=== PATIENT | male | born 1955 | race Caucasian/White ===

== ENCOUNTER 2016-11-22 22:55 | Emergency (ER) | payer BC ==
[2016-11-23 00:24] VITALS: BP 153/95
--- NOTE | 2016-11-23 00:39 | ED ---
Skin Complaint - HPI Summary HPI Summary: Patient arrives to ED with a CC of discoloration and swelling over the right 4th finger x1 day. He denies trauma to the area. He admits he has not been to a PCP in over 5 years. He denies pain, SOB, chest discomfort, SCHMIDT, abd pain, visual disturbances or other complaints. Denies anticoagulant use. Denies medications or allergies. - History of Current Complaint Chief Complaint: EDExtremityUpper Time Seen by Provider: 11/23/16 00:00 Stated Complaint: BRUISING ON FINGER Hx Obtained From: Patient Onset/Duration: Started Hours Ago Skin Exposure Onset/Duration: Hours Ago Timing: Constant Onset Severity: Mild Current Severity: Mild Pain Intensity: 0 Pain Scale Used: 0-10 Numeric Skin Location: Discrete - at right 4th finger Character: Swelling - with ecchymosis Aggravating Symptom(s): Nothing Alleviating Symptom(s): Nothing Associated Signs & Symptoms: Negative - Allergy/Home Medications Allergies/Adverse Reactions: Allergies Allergy/AdvReac Type Severity Reaction Status Date / Time No Known Allergies Allergy Verified 10/07/13 14:16 PMH/Surg Hx/FS Hx/Imm Hx Previously Healthy: Yes - Surgical History Surgery Procedure, Year, and Place: Descended testicle. Oral surgery, removing teeth/gum surgery Infectious Disease History: No Infectious Disease History: Denies: Hx Clostridium Difficile, Hx Hepatitis, Hx Human Immunodeficiency Virus (HIV), Hx of Known/Suspected MRSA, Hx Shingles, Hx Tuberculosis, Hx Known/ Suspected VRE, Hx Known/Suspected VRSA, History Other Infectious Disease, Traveled Outside the [place] in Last 30 Days - Social History Occupation: Employed Full-time Lives: With Family Alcohol Use: None Hx Substance Use: No Substance Use Type: Reports: None, Excessive Caffeine Hx Tobacco Use: No Smoking Status (MU): Never Smoked Tobacco Do You Chew or Dip Tobacco: No Have You Chewed or Dipped Tobacco in the LAST YEAR: No Review of Systems Constitutional: Negative Cardiovascular: Negative Respiratory: Negative Positive: Arthralgia - osteoarthritis at baseline Positive: Other - ecchymosis and slight swelling superior to the MCP joint of the right 4th finger Neurological: Negative Psychological: Normal All Other Systems Reviewed And Are Negative: Yes Physical Exam Triage Information Reviewed: Yes Vital Signs On Initial Exam: Initial Vitals Temp Pulse Resp BP Pulse Ox 98.9 F 96 16 166/100 98 11/22/16 23:14 11/22/16 23:14 11/22/16 23:14 11/22/16 23:14 11/22/16 23:14 Vital Signs Reviewed: Yes Appearance: Positive: Well-Appearing, No Pain Distress, Well-Nourished Skin: Positive: Other - ecchymosis and slight swelling superior to the MCP joint of the right 4th finger Head/Face: Positive: Normal Head/Face Inspection Diagnostics - Vital Signs Vital Signs Temp Pulse Resp BP Pulse Ox 11/22/16 23:14 98.9 F 96 16 166/100 98 - Laboratory Lab Statement: Any lab studies that have been ordered have been reviewed, and results considered in the medical decision making process. Course/Dx - Course Course Of Treatment: Patient arrives with slight bruising to his right 4th finger without pain, decrease of sensation or other symptoms. Concerned for a blood clot. Provider gave reassurance. Patient has osteoarthritis and felt it could be from that. High BP on arrival which decreased prior to discharge. Encouraged to follow up with PCP for further evaluation. - Differential Diagnoses - Skin Complaint Differential Diagnoses: Other - contusion, blood vessel rupture, strain - Diagnoses Provider Diagnoses: Blood vessel injury, High blood pressure - Physician Notifications Instructed by Provider To: Have Pt Call For Appt. - PCP Dr. Irwin Discharge - Discharge Plan Condition: Stable Disposition: HOME Patient Education Materials: Osteoarthritis (ED), Hypertension (ED) Referrals: Nick Irwin MD [Primary Care Provider] - Additional Instructions: Follow up with your PCP regarding the high blood pressure numbers. If the area of concern begins to develop warmth, redness, worsening swelling, streaking of red lines up the hand or finger or you develop a fever - these are signs of infection and you should come back to ED to get assessed.
== END 2016-11-23 00:32 | disposition home or self-care (01) ==
LOC: ED 22:55
DX: M79.89 Other specified soft tissue disorders (principal)
CPT/HCPCS: 99281

== ENCOUNTER 2016-12-29 22:58 | Emergency (ER) | payer BC ==
[2016-12-29] MEDS ORDERED: Aspirin Low Dose CHEW TAB* 81 MG PO ONE (23:18)
--- NOTE | 2016-12-30 00:18 | ED ---
Cheri Mota SooYoung, scribed for Myles Jerry MD on 12/29/16 at 2312 . HPI Chest Pain - HPI Summary HPI Summary: A 61 y/o M presents to ED with c/o high blood pressure onset tonight. He took it and it was about 180/110. Associated sx: malaise past few days, flushed. He states that he was given a dx HTN from ED visit about one month ago. He is not on any medication. Pt is scheduled to see a new PCP on January 27, he says it's been several years since his last general check-up. - History of Current Complaint Chief Complaint: EDChestPainROMI Hx Obtained From: Patient Onset/Duration: Started Hours Ago Current Severity: Mild Pain Intensity: 3 Pain Scale Used: 0-10 Numeric Character: Fast Associated Signs and Symptoms: Positive: Other: - pos: malaise; flushed - Allergy/Home Medications Allergies/Adverse Reactions: Allergies Allergy/AdvReac Type Severity Reaction Status Date / Time No Known Allergies Allergy Verified 10/07/13 14:16 PMH/Surg Hx/FS Hx/Imm Hx Previously Healthy: Yes Cardiovascular History: Reports: Hx Hypertension - Surgical History Surgery Procedure, Year, and Place: Descended testicle. Oral surgery, removing teeth/gum surgery Infectious Disease History: Denies: Hx Clostridium Difficile, Hx Hepatitis, Hx Human Immunodeficiency Virus (HIV), Hx of Known/Suspected MRSA, Hx Shingles, Hx Tuberculosis, Hx Known/ Suspected VRE, Hx Known/Suspected VRSA, History Other Infectious Disease, Traveled Outside the [place] in Last 30 Days - Family History Known Family History: Positive: Other - pos: Colon CA - Social History Occupation: Employed Full-time Lives: Alone Alcohol Use: None Hx Substance Use: No Substance Use Type: Reports: None, Excessive Caffeine Hx Tobacco Use: No Smoking Status (MU): Never Smoked Tobacco Review of Systems Positive: Other - pos: HTN Positive: Other - pos: flushed Neurological: Other - pos: malaise All Other Systems Reviewed And Are Negative: Yes Physical Exam Triage Information Reviewed: Yes Vital Signs On Initial Exam: Initial Vitals Temp Pulse Resp BP Pulse Ox 97.6 F 89 18 159/93 99 12/29/16 23:01 12/29/16 23:01 12/29/16 23:01 12/29/16 23:01 12/29/16 23:01 Vital Signs Reviewed: Yes Appearance: Positive: Well-Appearing, No Pain Distress - anxious Skin: Positive: Warm Head/Face: Positive: Normal Head/Face Inspection Eyes: Positive: YSABEL ENT: Positive: Hearing grossly normal Neck: Positive: Supple Respiratory/Lung Sounds: Positive: Clear to Auscultation, Breath Sounds Present Cardiovascular: Positive: RRR Abdomen Description: Positive: Nontender, Soft Bowel Sounds: Positive: Present Musculoskeletal: Positive: Strength/ROM Intact Neurological: Positive: Sensory/Motor Intact, Alert, Oriented to Person Place, Time Psychiatric: Positive: Affect/Mood Appropriate Diagnostics - Vital Signs Vital Signs Temp Pulse Resp BP Pulse Ox 12/29/16 23:01 97.6 F 89 18 159/93 99 - Laboratory Result Diagrams: 12/29/16 01:13 12/29/16 01:13 Lab Statement: Any lab studies that have been ordered have been reviewed, and results considered in the medical decision making process. - Radiology CXR Xray Interpretation: No Acute Changes Radiology Interpretation Completed By: ED Physician Chest Pain Course/Dx - Diagnoses Provider Diagnoses: Chest pain Discharge - Discharge Plan Condition: Improved Disposition: HOME Patient Education Materials: Chest Pain (ED) Referrals: Nick Irwin MD [Primary Care Provider] - 1 Week Additional Instructions: Follow up with your primary care provider this week. Please return to ED if you experience new or worsening symptoms. The documentation as recorded by the [employer] [facility]o[employer] accurately reflects the service I personally performed and the decisions made by me, Myles Jerry MD.
[2016-12-30 01:26] LABS: Hematocrit 42 % (42-52); Hemoglobin 14.4 g/dl (14.0-18.0); Mean Corpuscular HGB Conc 34 g/dl (31-36); Mean Corpuscular Hemoglobin 30 pg (27-31); Mean Corpuscular Volume 87 fL (80-94); Mean Platelet Volume 10 um3 (7.4-10.4); Red Blood Count 4.81 10^6/ul (4.0-5.4); Red Cell Distribution Width 13 % (10.5-15)
[2016-12-30 01:31] LABS: Add Diff/Slide Review? Slide Review Added; Comments Flag Yes
[2016-12-30 01:43] LABS: Albumin 4.2 g/dL (3.2-5.2); BUN/Creatinine Ratio 22.4 (8-20); Calcium 9.1 mg/dL (8.6-10.3); EGFR African American 99.7 (>60); EGFR Non-African American 77.5 (>60); Globulin 2.4 g/dL (2-4); Potassium 3.8 mmol/L (3.5-5.0); Total Bilirubin 0.6 mg/dL (0.2-1.0); Total Protein 6.6 g/dL (6.4-8.9)
[2016-12-30 02:07] VITALS: BP 147/92
--- NOTE | 2016-12-30 07:37 | RAD ---
INDICATION: Chest pain. COMPARISON: Comparison is made with a prior study from [facility] 2004. TECHNIQUE: Dual-energy PA and lateral views of the chest were obtained. FINDINGS: The heart is within normal limits in size. Mediastinal and hilar contours appear within normal limits. There are several calcified right hilar and mediastinal lymph nodes on the right side most consistent with old granulomatous disease. The lungs are clear. No pleural effusion is seen. IMPRESSION: FINDINGS SUGGESTIVE OF OLD GRANULOMATOUS DISEASE, NO EVIDENCE FOR ACUTE FINDING.
== END 2016-12-30 02:07 | disposition home or self-care (01) ==
LOC: ED 22:58
DX: R07.9 Chest pain, unspecified (principal); I10 Essential (primary) hypertension
CPT/HCPCS: 36415; 71020; 80053; 83605; 84484; 85025; 93005; 99283; A9270-GY

== ENCOUNTER 2017-09-17 21:16 | Emergency (ER) | payer BC ==
--- NOTE | 2017-09-17 22:12 | RAD ---
Indication: Dizziness. 2 views of the chest are reviewed and compared to previous exam dated December 29, 2016. No mediastinal shift is noted. Heart is normal size and configuration. Lung ornelas demonstrate no pleural fluid, pneumonia or pneumothorax. IMPRESSION: No active cardiopulmonary disease is noted. No change since prior exam.
[2017-09-17 22:37] LABS: Hematocrit 40 % (42-52); Hemoglobin 13.5 g/dl (14.0-18.0); Mean Corpuscular HGB Conc 34 g/dl (31-36); Mean Corpuscular Hemoglobin 31 pg (27-31); Mean Corpuscular Volume 90 fL (80-94); Mean Platelet Volume 9 um3 (7.4-10.4); Red Blood Count 4.38 10^6/ul (4.0-5.4); Red Cell Distribution Width 13 % (10.5-15); White Blood Count 5.6 10^3/ul (3.5-10.8)
[2017-09-17 22:53] LABS: Albumin 4.4 g/dL (3.2-5.2); BUN/Creatinine Ratio 29.1 (8-20); Calcium 9.7 mg/dL (8.6-10.3); EGFR African American 93.8 (>60); EGFR Non-African American 72.9 (>60); Globulin 2.2 g/dL (2-4); Potassium 4.2 mmol/L (3.5-5.0); Total Bilirubin 0.8 mg/dL (0.2-1.0); Total Protein 6.6 g/dL (6.4-8.9)
[2017-09-17] MEDS ORDERED: NS 0.9% 1000 ML* 2,000 ML IV ONE (22:59)
[2017-09-18 00:37] LABS: Urine Bilirubin Negative (Negative); Urine Glucose Negative (Negative); Urine Nitrite Negative (Negative)
[2017-09-18 01:17] VITALS: BP 109/66
--- NOTE | 2017-09-18 01:23 | ED ---
Ankur Mota Tiffany, scribed for Yasmani Oliveros on 09/17/17 at 2255 . Lower Extremity - HPI Summary HPI Summary: This patient is a 62 year old M presenting to [facility] accompanied by with a chief complaint of bilateral leg weakness since two hours ago. Symptoms aggravated by nothing. Symptoms alleviated by nothing. Patient reports diaphoresis, shakiness and dizziness. Patient denies fever, chest pain, shortness of breath, sore throat and abdominal pain. - History of Current Complaint Chief Complaint: EDWeakness Stated Complaint: SHAKY, DIZZY Time Seen by Provider: 09/17/17 22:44 Hx Obtained From: Patient Onset/Duration: Hours - 2 hrs ago Associated Signs And Symptoms: Positive: Other Aggravating Factor(s): Nothing Alleviating Factor(s): Nothing - Allergies/Home Medications Allergies/Adverse Reactions: Allergies Allergy/AdvReac Type Severity Reaction Status Date / Time No Known Allergies Allergy Verified 10/07/13 14:16 PMH/Surg Hx/FS Hx/Imm Hx Previously Healthy: No Endocrine/Hematology History: Reports: Hx Diabetes - Type II Cardiovascular History: Reports: Hx Hypertension Opthamlomology History: Denies: Hx Legally Blind EENT History: Denies: Hx Deafness - Surgical History Surgery Procedure, Year, and Place: Descended testicle. Oral surgery, removing teeth/gum surgery - Immunization History Date of Tetanus Vaccine: utd Date of Influenza Vaccine: 2017 Infectious Disease History: No Infectious Disease History: Denies: Hx Clostridium Difficile, Hx Hepatitis, Hx Human Immunodeficiency Virus (HIV), Hx of Known/Suspected MRSA, Hx Shingles, Hx Tuberculosis, Hx Known/ Suspected VRE, Hx Known/Suspected VRSA, History Other Infectious Disease, Traveled Outside the [place] in Last 30 Days - Family History Known Family History: Positive: Other - pos: Colon [place] - Social History Alcohol Use: None Hx Substance Use: Yes Substance Use Type: Reports: Excessive Caffeine Hx Tobacco Use: No Smoking Status (MU): Never Smoked Tobacco Review of Systems Positive: Skin Diaphoresis. Negative: Fever Negative: Sore Throat Negative: Chest Pain Negative: Shortness Of Breath Negative: Abdominal Pain Neurological: Other - Shakiness, dizziness Positive: Weakness - Bilateral leg All Other Systems Reviewed And Are Negative: Yes Physical Exam - Summary Physical Exam Summary: Appearance: Well appearing, no pain distress Skin: warm, dry, reflects adequate perfusion Head/face: normal Eyes: EOMI, YSABEL ENT: normal Neck: supple, non-tender Respiratory: CTA, breath sounds present Cardiovascular: RRR, pulses symmetrical Abdomen: non-tender, soft Bowel: present Musculoskeletal: normal, strength/ROM intact Neuro: normal, sensory motor intact, A&Ox3 Triage Information Reviewed: Yes Vital Signs On Initial Exam: Initial Vitals Temp Pulse Resp BP Pulse Ox 96.5 F 72 18 140/81 100 09/17/17 21:19 09/17/17 21:19 09/17/17 21:19 09/17/17 21:19 09/17/17 21:19 Vital Signs Reviewed: Yes - [place] Coma Scale Coma Scale Total: 15 Diagnostics - Vital Signs Vital Signs Temp Pulse Resp BP Pulse Ox 09/17/17 21:19 96.5 F 72 18 140/81 100 - Laboratory Lab Results: Lab Results 09/17/17 Range/Units 22:25 WBC 5.6 (3.5-10.8) 10^3/ul RBC 4.38 (4.0-5.4) 10^6/ul Hgb 13.5 L (14.0-18.0) g/dl Hct 40 L (42-52) % MCV 90 (80-94) fL MCH 31 (27-31) pg MCHC 34 (31-36) g/dl RDW 13 (10.5-15) % Plt Count 164 (150-450) 10^3/ul MPV 9 (7.4-10.4) um3 Neut % (Auto) 69.3 (38-83) % Lymph % (Auto) 21.1 L (25-47) % [place] % (Auto) 6.8 (1-9) % Eos % (Auto) 1.8 (0-6) % Baso % (Auto) 1.0 (0-2) % Absolute Neuts (auto) 3.9 (1.5-7.7) 10^3/ul Absolute Lymphs (auto) 1.2 (1.0-4.8) 10^3/ul Absolute Monos (auto) 0.4 (0-0.8) 10^3/ul Absolute Eos (auto) 0.1 (0-0.6) 10^3/ul Absolute Basos (auto) 0.1 (0-0.2) 10^3/ul Absolute Nucleated RBC 0.01 10^3/ul Nucleated RBC % 0.1 Result Diagrams: 09/17/17 22:25 09/17/17 22:25 Lab Statement: Any lab studies that have been ordered have been reviewed, and results considered in the medical decision making process. - Radiology CXR Radiology Interpretation Completed By: Radiologist - No active cardiopulmonary disease is noted. No change since prior exam. ED physician has reviewed this radiology report. - EKG 21:41 Cardiac Rate: NL EKG Rhythm: Sinus Rhythm - 68 BPM EKG Interpretation: Right bundle branch block Lower Extremity Course/Dx - Course Course Of Treatment: This patient is a 62 year old M with a chief complaint of bilateral leg weakness since two hours ago. An EKG reveals sinus rhythm and right bundle branch block. UA obtained. Influenza test came back negative. CXR reveals, per radiologist, No active cardiopulmonary disease is noted. No change since prior exam. The patient refused CT head. Patient will be discharged with follow up from primary care provider. The patient is agreeable with this plan. - Diagnoses Differential Diagnosis/HQI/PQRI: Positive: Other - dizziness/viral syndrome/ influenza Provider Diagnoses: Weakness, Viral syndrome Discharge - Discharge Plan Condition: Stable Disposition: HOME Patient Education Materials: Viral Syndrome (ED), Weakness (ED) Referrals: Андрей Cummings MD [Primary Care Provider] - 3 Days Additional Instructions: Follow up with primary care provider in 3 days. Return to the Emergency Room if current symptoms worsen or if new symptoms develop. The documentation as recorded by the [employer] [facility] accurately reflects the service I personally performed and the decisions made by Arlin curtis Emmanuel.
== END 2017-09-18 01:19 | disposition home or self-care (01) ==
LOC: ED 21:16
DX: R53.1 Weakness (principal); B34.9 Viral infection, unspecified
CPT/HCPCS: 36415; 71020; 80053; 81003; 83605; 83735; 83880; 84484; 85025; 85610; 85730; 87502; 93005; 96360; 96361; 99283